=== PATIENT | male | born 1950 | race Two or more races ===

== ENCOUNTER 2021-06-02 14:34 | Emergency (ER) | payer MEDICARE, OTHER ==
[~2021-06-02] VITALS: Ht 180.3 cm; Wt 88.5 kg
--- NOTE | 2021-06-02 15:00 | NUR ---
RECIVED PT 70 YRS MALE IN BED I S/P TA today at 1345 pain inneck 04/26 moving all extrmity no open skin fallow awke and alert
[2021-06-02] MEDS ORDERED: CARI350T PO (15:58)
--- NOTE | 2021-06-02 16:07 | NUR ---
Patient discharged to home in stable condition. Written and verbal after care instructions given. Patient verbalizes understanding of instruction. The patient has stable gait. Picked up by daughter.
[2021-06-02 16:11] VITALS: BP 152/82
== END 2021-06-02 16:11 | disposition home or self-care (01) ==
LOC: ER 14:41
DX: S13.4XXA Sprain of ligaments of cervical spine, initial encounter (principal); S33.5XXA Sprain of ligaments of lumbar spine, initial encounter; I10 Essential (primary) hypertension; Z79.899 Other long term (current) drug therapy; V89.2XXA Person injured in unspecified motor-vehicle accident, traffic, initial encounter; Y93.89 Activity, other specified; Y92.89 Other specified places as the place of occurrence of the external cause; Y99.8 Other external cause status
CPT/HCPCS: 72125-TC; 72131-TC